=== PATIENT | female | born 1990 | race Caucasian/White ===

== ENCOUNTER 2017-02-15 21:00 | Emergency (ER) | payer SELFPAY ==
[~2017-02-15] VITALS: Ht 149.9 cm; Wt 86.0 kg
[~2017-02-15 21:00] MED LIST: IOHEXOL-300 100 ML BOTTLE ONE; SODIUM CHLORIDE 0.9% 10ML VIAL ONE
[2017-02-15] MEDS ORDERED: ONDANSETRON HCL 4MG/2ML VIAL IV STA (23:15)
[2017-02-15] MEDS ORDERED: MORPHINE SULFATE 4 MG/ML CPJ (NOT FOR IM USE) IV STA (23:15)
[2017-02-15] MEDS ORDERED: SODIUM CHLORIDE 0.9% 1,000 ML IV ONE (23:15)
[2017-02-16 00:29] LABS: BASOPHILS % 0.3 % (0.0-2.0); EOSINOPHILS % 0.7 % (0.0-5.0); HEMATOCRIT. 36.9 % (36.0-48.0); HEMOGLOBIN. 12.4 g/dL (12.0-16.0); LYMPHOCYTES % 27.5 % (20.0-50.0); MEAN CORPUSCULAR VOLUME 80.3 fL (81.0-99.0); MEAN PLATELET VOLUME 8.5 fl (7.4-10.4); MONOCYTES % 6.7 % (2.0-8.0); NEUTROPHILS % 64.8 % (40.0-76.0); PLATELET 260 x1000/uL (130-400); RED CELL DISTRIBUTION WIDTH 14.6 % (11.6-14.6)
[2017-02-16 00:41] LABS: CARBON DIOXIDE 23 mEq/L (21-32); CHLORIDE 104 mEq/L (98-107); TROPONIN I < 0.02 ng/mL (0.00-0.04)
[2017-02-16] MEDS ORDERED: SODIUM CHLORIDE 0.9% 1,000 ML IV ONE (00:48)
[2017-02-16 03:00] VITALS: BP 117/78
== END 2017-02-16 04:00 | disposition home or self-care (01) ==
LOC: ER 21:00
DX: R07.89 Other chest pain (principal); F41.9 Anxiety disorder, unspecified; F32.9 Major depressive disorder, single episode, unspecified
CPT/HCPCS: 36415; 71010; 71275; 80053; 81025; 83690; 84484; 85025; 85379; 93005; 96361; 96374; 96375; 99285; A4216; J2270; J2405; J7030; Q9967; Z7610

== ENCOUNTER 2017-07-07 10:35 | Emergency (ER) | payer SELFPAY ==
[~2017-07-07] VITALS: Ht 162.6 cm; Wt 82.0 kg
[2017-07-07] MEDS ORDERED: LORAZEPAM 2MG/ML CPJ IM PRN (11:15)
[2017-07-07 11:41] LABS: BASOPHILS % 0.4 % (0.0-2.0); EOSINOPHILS % 0.6 % (0.0-5.0); HEMATOCRIT. 38.3 % (36.0-48.0); HEMOGLOBIN. 12.7 g/dL (12.0-16.0); LYMPHOCYTES % 32.9 % (20.0-50.0); MEAN CORPUSCULAR HEMOGLOBIN 26.8 pg (28.0-32.0); MEAN CORPUSCULAR VOLUME 80.6 fL (81.0-99.0); MEAN PLATELET VOLUME 8.2 fl (7.4-10.4); MONOCYTES % 5.5 % (2.0-8.0); NEUTROPHILS % 60.6 % (40.0-76.0); PLATELET 314 x1000/uL (130-400); RED BLOOD CELL COUNT 4.75 mill/uL (4.2-5.4); RED CELL DISTRIBUTION WIDTH 14.5 % (11.6-14.6)
[2017-07-07 11:47] LABS: CHLORIDE 107 mEq/L (98-107)
[2017-07-07 11:56] LABS: CARBON DIOXIDE 28 mEq/L (21-32); ETHANOL BLOOD < 10 mg/dL
[2017-07-07] MEDS: OLANZAPINE 10 MG/VIAL IM ONE (16:00)
[2017-07-07] MEDS: OLANZAPINE 10 MG/VIAL IM NR (16:41)
[2017-07-07] MEDS: LORAZEPAM 2MG/ML CPJ IM PRN (16:41)
[2017-07-07 17:44] LABS: CLARITY URINE CLEAR (CLEAR); COLOR URINE YELLOW (YELLOW); KETONES URINE NEGATIVE (NEGATIVE); LEUKOCYTE ESTERASE URINE NEGATIVE (NEGATIVE); NITRITE URINE NEGATIVE (NEGATIVE); OCCULT BLOOD URINE NEGATIVE (NEGATIVE); PROTEIN URINE NEGATIVE (NEGATIVE); SPECIFIC GRAVITY URINE 1.021 (1.005-1.030); UROBILINOGEN URINE 0.2 E.U./dL (0.2-1.0)
[2017-07-07 18:16] LABS: *AMPHETAMINES SCREEN URINE NEGATIVE (NEGATIVE); *BENZODIAZEPINES SCREEN URINE NEGATIVE (NEGATIVE); *COCAINE SCREEN URINE NEGATIVE (NEGATIVE); CANNABINOID URINE SCREEN NEGATIVE (NEGATIVE); METHADONE URINE SCREEN NEGATIVE (NEGATIVE); OPIATES URINE SCREEN NEGATIVE (NEGATIVE); PHENCYCLIDINE URINE SCREEN NEGATIVE (NEGATIVE)
[2017-07-07 18:20] LABS: *BARBITURATES SCREEN URINE NEGATIVE (NEGATIVE)
[2017-07-07 21:45] VITALS: BP 129/85
== END 2017-07-07 22:05 | disposition home or self-care (01) ==
LOC: ER 10:35
DX: F41.9 Anxiety disorder, unspecified (principal); F32.9 Major depressive disorder, single episode, unspecified; F20.9 Schizophrenia, unspecified
CPT/HCPCS: 36415; 80053; 80305; 80307; 80329; 81003; 81025; 82962; 85025; 96372; 99284; G0482; J2060; J3490; Z7610

== ENCOUNTER 2017-09-21 17:34 | Emergency (ER) | payer SELFPAY ==
[~2017-09-21] VITALS: Ht 152.4 cm; Wt 83.0 kg
[2017-09-21 18:00] VITALS: BP 116/86
== END 2017-09-21 23:15 | disposition left against medical advice (07) ==
LOC: ER 17:34
DX: F41.0 Panic disorder [episodic paroxysmal anxiety] (principal); R22.0 Localized swelling, mass and lump, head; Y04.0XXA Assault by unarmed brawl or fight, initial encounter
CPT/HCPCS: 99281

== ENCOUNTER 2017-10-30 07:05 | Emergency (ER) | payer SELFPAY ==
[~2017-10-30] VITALS: Ht 152.4 cm; Wt 82.0 kg
[2017-10-30] MEDS ORDERED: KETOROLAC 30MG/ML VIAL IV ONE (07:45)
[2017-10-30] MEDS ORDERED: DEXAMETHASONE 10 MG/ML VIAL IV ONE (07:45)
[2017-10-30] MEDS ORDERED: SODIUM CHLORIDE 0.9% 1,000 ML IV ONE (07:45)
[2017-10-30 08:13] LABS: HEMATOCRIT. 37.1 % (36.0-48.0); HEMOGLOBIN. 12.4 g/dL (12.0-16.0); MEAN CORPUSCULAR HEMOGLOBIN 26.3 pg (28.0-32.0); MEAN PLATELET VOLUME 8.3 fl (7.4-10.4); PLATELET 255 x1000/uL (130-400); RED CELL DISTRIBUTION WIDTH 15.6 % (11.6-14.6)
[2017-10-30 08:20] LABS: CHLORIDE 102 mEq/L (98-107)
[2017-10-30 08:52] LABS: PLATELET ESTIMATE NORMAL
[2017-10-30] MEDS ORDERED: CEFTRIAXONE 1 G PREMIX 50 ML IV ONE ×2 (09:45→10:00)
[2017-10-30 10:35] VITALS: BP 111/58
== END 2017-10-30 11:11 | disposition home or self-care (01) ==
LOC: ER 07:05
DX: J02.9 Acute pharyngitis, unspecified (principal)
CPT/HCPCS: 36415; 71045; 80048; 81025; 85025; 87070; 87430; 87804; 96361; 96365; 96375; 99285; J0696; J1100; J1885; J7030; Z7610

== ENCOUNTER 2018-03-31 12:29 | Emergency (ER) | payer SELFPAY ==
[~2018-03-31] VITALS: Ht 157.5 cm; Wt 78.0 kg
[2018-03-31 14:56] VITALS: BP 145/86
== END 2018-03-31 14:58 | disposition home or self-care (01) ==
LOC: ER 12:29
DX: S63.682A Other sprain of left thumb, initial encounter (principal); Y04.0XXA Assault by unarmed brawl or fight, initial encounter; Y93.89 Activity, other specified; Y92.018 Other place in single-family (private) house as the place of occurrence of the external cause
CPT/HCPCS: 73110; 73130; 99284

== ENCOUNTER 2018-08-31 17:57 | Emergency (ER) | payer SELFPAY ==
[~2018-08-31] VITALS: Ht 149.9 cm; Wt 82.0 kg
[2018-08-31 18:14] VITALS: BP 135/80
[2018-08-31 18:54] LABS: CLARITY URINE CLEAR (CLEAR); COLOR URINE YELLOW (YELLOW); KETONES URINE NEGATIVE (NEGATIVE); LEUKOCYTE ESTERASE URINE NEGATIVE (NEGATIVE); NITRITE URINE NEGATIVE (NEGATIVE); OCCULT BLOOD URINE 1+ (NEGATIVE); PROTEIN URINE NEGATIVE (NEGATIVE); SPECIFIC GRAVITY URINE 1.009 (1.005-1.030); UROBILINOGEN URINE 0.2 E.U./dL (0.2-1.0)
== END 2018-08-31 19:45 | disposition left against medical advice (07) ==
LOC: ER 17:57
DX: Z53.21 Procedure and treatment not carried out due to patient leaving prior to being seen by health care provider (principal); F41.9 Anxiety disorder, unspecified

== ENCOUNTER 2018-09-05 18:43 | Emergency (ER) | payer SELFPAY ==
[~2018-09-05] VITALS: Ht 149.9 cm; Wt 86.0 kg
[2018-09-05 20:34] VITALS: BP 140/87
== END 2018-09-05 23:28 | disposition left against medical advice (07) ==
LOC: ER 18:43
DX: Z53.21 Procedure and treatment not carried out due to patient leaving prior to being seen by health care provider (principal)

== ENCOUNTER 2020-05-02 22:52 | Emergency (ER) | payer MEDICAID ==
[~2020-05-02] VITALS: Ht 149.9 cm; Wt 91.0 kg
[2020-05-03] MEDS ORDERED: MAGNESIUM/ALUMINUM HYDROXIDE/SIMETHICONE 30ML UDC PO STA (00:27)
[2020-05-03] MEDS ORDERED: VISCOUS LIDOCAINE 2% 15 ML UDC PO STA (00:27)
[2020-05-03] MEDS ORDERED: FAMOTIDINE 20MG TABLET PO ONE (00:30)
[2020-05-03 00:52] LABS: BASOPHILS % 0.8 % (0.0-2.0); EOSINOPHILS % 1.3 % (0.0-5.0); HEMATOCRIT. 38.8 % (36.0-48.0); HEMOGLOBIN. 12.9 g/dL (12.0-16.0); LYMPHOCYTES % 28.1 % (20.0-50.0); MEAN CORPUSCULAR HEMOGLOBIN 24.6 pg (28.0-32.0); MEAN CORPUSCULAR VOLUME 73.8 fL (81.0-99.0); MEAN PLATELET VOLUME 8.4 fl (7.4-10.4); MONOCYTES % 5.4 % (2.0-8.0); NEUTROPHILS % 64.4 % (40.0-76.0); PLATELET 302 x1000/uL (130-400); RED BLOOD CELL COUNT 5.25 mill/uL (4.2-5.4); RED CELL DISTRIBUTION WIDTH 18.5 % (11.6-14.6)
[2020-05-03 00:53] LABS: CHLORIDE 107 mEq/L (98-107)
[2020-05-03 01:20] LABS: CLARITY URINE CLEAR (CLEAR); COLOR URINE YELLOW (YELLOW); KETONES URINE NEGATIVE (NEGATIVE); LEUKOCYTE ESTERASE URINE NEGATIVE (NEGATIVE); NITRITE URINE NEGATIVE (NEGATIVE); OCCULT BLOOD URINE NEGATIVE (NEGATIVE); PROTEIN URINE NEGATIVE (NEGATIVE); SPECIFIC GRAVITY URINE 1.021 (1.005-1.030); UROBILINOGEN URINE 0.2 E.U./dL (0.2-1.0)
[2020-05-03 03:17] VITALS: BP 140/89
== END 2020-05-03 03:25 | disposition home or self-care (01) ==
LOC: ER 22:52
DX: K62.5 Hemorrhage of anus and rectum (principal); K21.9 Gastro-esophageal reflux disease without esophagitis
CPT/HCPCS: 36415; 71045; 80053; 81003; 81025; 85025; 93005; 99285

== ENCOUNTER 2020-07-11 20:21 | Emergency (ER) | payer MEDICAID ==
[~2020-07-11] VITALS: Ht 149.9 cm; Wt 82.0 kg
[2020-07-11] MEDS ORDERED: BACITRACIN ZINC OINT UDPKT TOP ONE (21:00)
[2020-07-11] MEDS ORDERED: LIDOCAINE HCL/PF 1% 10 MG/ML 5ML VIAL IJ ONE (21:00)
[2020-07-11] MEDS ORDERED: TETANUS, DIPHTHERIA, PERTUSSIS VAC/PF 0.5ML (>7YR OLD) IM ONE (21:00)
[2020-07-11] MEDS ORDERED: IBUPROFEN 600MG TABLET PO ONE (21:00)
[2020-07-11 21:58] VITALS: BP 158/97
== END 2020-07-11 22:30 | disposition home or self-care (01) ==
LOC: ER 20:21
DX: S61.511A Laceration without foreign body of right wrist, initial encounter (principal); W25.XXXA Contact with sharp glass, initial encounter; Y93.89 Activity, other specified; Y92.038 Other place in apartment as the place of occurrence of the external cause; Z23 Encounter for immunization
CPT/HCPCS: 12001; 73110; 90471; 90715; 99283; A4217; J3490; Z7610

== ENCOUNTER 2020-07-21 19:03 | Emergency (ER) | payer MEDICAID ==
[~2020-07-21] VITALS: Ht 149.9 cm; Wt 86.0 kg
[2020-07-21 20:03] VITALS: BP 125/75
== END 2020-07-21 20:30 | disposition home or self-care (01) ==
LOC: ER 19:03
DX: S61.511D Laceration without foreign body of right wrist, subsequent encounter (principal); X58.XXXD Exposure to other specified factors, subsequent encounter
CPT/HCPCS: 99281; Z7610

== ENCOUNTER 2021-05-16 08:09 | Emergency (ER) | payer MEDICAID ==
[~2021-05-16] VITALS: Ht 149.9 cm; Wt 80.0 kg
[2021-05-16] MEDS ORDERED: ACETAMINOPHEN 325MG TABLET PO ONE (08:45)
[2021-05-16] MEDS ORDERED: IBUPROFEN 400MG TABLET PO ONE (08:45)
[2021-05-16] MEDS ORDERED: METHOCARBAMOL 500MG TABLET PO ONE (08:45)
[2021-05-16] MEDS ORDERED: LIDOCAINE 5% PATCH TOP SCH (09:00)
[2021-05-16] MEDS ORDERED: TOPUD PO (09:51)
[2021-05-16] MEDS ORDERED: IBUP-2028 MT (09:51)
[2021-05-16] MEDS ORDERED: LIDO1ADH23 TP (09:51)
[2021-05-16] MEDS ORDERED: METH-653 MT (09:52)
[2021-05-16 10:13] VITALS: BP 113/78
== END 2021-05-16 10:14 | disposition home or self-care (01) ==
LOC: ER 08:09
DX: M54.50 Low back pain, unspecified (principal)
CPT/HCPCS: 81025; 99284

== ENCOUNTER 2021-10-06 06:56 | Emergency (ER) | payer MEDICAID ==
[~2021-10-06] VITALS: Ht 149.9 cm; Wt 81.6 kg
[~2021-10-06 06:56] MED LIST changes: +IBUP-2028 MT; -IOHEXOL-300 100 ML BOTTLE ONE; +LIDO1ADH23 TP; +METH-653 MT; -SODIUM CHLORIDE 0.9% 10ML VIAL ONE; +TOPUD PO
[2021-10-06 07:01] VITALS: BP 132/83
[2021-10-06] MEDS ORDERED: KETOROLAC 30MG/ML VIAL IV STA (07:23)
[2021-10-06 08:19] LABS: BASOPHILS % 0.5 % (0.0-2.0); EOSINOPHILS % 0.5 % (0.0-5.0); HEMATOCRIT. 34.3 % (36.0-48.0); HEMOGLOBIN. 10.8 g/dL (12.0-16.0); LYMPHOCYTES % 21.6 % (20.0-50.0); MEAN CORPUSCULAR HEMOGLOBIN 22.3 pg (28.0-32.0); MEAN CORPUSCULAR VOLUME 70.5 fL (81.0-99.0); MEAN PLATELET VOLUME 8.2 fl (7.4-10.4); MONOCYTES % 5.9 % (2.0-8.0); NEUTROPHILS % 71.5 % (40.0-76.0); PLATELET 340 x1000/uL (130-400); RED BLOOD CELL COUNT 4.86 mill/uL (4.2-5.4); RED CELL DISTRIBUTION WIDTH 17.4 % (11.6-14.6)
[2021-10-06 08:37] LABS: CHLORIDE 111 mEq/L (98-107)
[2021-10-06 08:39] LABS: HCG SCREEN NEGATIVE
== END 2021-10-06 14:39 | disposition left against medical advice (07) ==
LOC: ER 07:15
DX: R10.31 Right lower quadrant pain (principal)
CPT/HCPCS: 36415; 80053; 84703; 85025; 99283